=== PATIENT | female | born 1965 | race Caucasian/White ===

== ENCOUNTER 2021-11-15 16:15 | Emergency (ER) | payer OTHER ==
[~2021-11-15] VITALS: Ht 165.1 cm; Wt 67.6 kg
[2021-11-15 16:30] VITALS: BP 113/54
[2021-11-15] MEDS ORDERED: KETOROLAC 60 MG/2 ML VIAL. IM ONE (17:15)
[2021-11-15] MEDS ORDERED: CYCLOBENZAPRINE 10 MG TABLET. PO ONE (17:15)
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
--- NOTE | 2021-11-15 17:55 | RAD ---
C-spine 5 views. HISTORY: Pain AP, lateral, odontoid and both oblique views were taken of the cervical spine. I do not have a prior study for comparison. There are wire sutures posteriorly from C1 to C3 along the spinous processes. O dontoid is poorly seen. An old fracture would be possible. There is facet arthritis at multiple level s in the cervical spine with hypertrophic change. There is disc space narrowing most prominent at C4- 5. Thyroid is poorly seen on the open mouth view. Correlation with old studies or CT would be of bene fit for complete evaluation. The head is tilted to the left which could be positional. IMPRESSION: 1. Wire sutures with posterior fusion from the posterior aspect of C1 to the spinous process of C3. 2. Odontoid is indistinct possibly an old fracture. CT or correlation with old films would be necessa ry for complete evaluation. 3. Extensive degenerative changes in the rest of the cervical spine without other evidence of an acut e fracture. Electronically signed by: Aftab Cordova MD (11/15/2021 5:52 PM) [facility]
--- NOTE | 2021-11-15 17:57 | RAD ---
Right foot 3 views. HISTORY: Pain 3 views were taken of the right foot. There is osteoarthritis at the first metatarsal phalangeal join t with joint space narrowing and spurring. There is no acute fracture. There are multiple screws in t he calcaneus evidence suggesting an old healed calcaneal fracture. There is arthritis at the talonavi cular joint with joint space narrowing and spurring. An acute fracture is not identified. Is also art hritis between the calcaneus and cuboid. IMPRESSION: 1. Screws in the calcaneus probable old fracture. 2. Arthritis at the talonavicular joint and calcaneocuboid joint. 3. Arthritis first metatarsal phalangeal joint. 4. No new fracture noted. Electronically signed by: Aftab Cordova MD (11/15/2021 5:55 PM) [facility]
== END 2021-11-15 18:22 | disposition home or self-care (01) ==
LOC: ER 16:15
DX: M54.2 Cervicalgia (principal); M79.671 Pain in right foot; V43.52XA Car driver injured in collision with other type car in traffic accident, initial encounter; Y93.89 Activity, other specified; Y92.488 Other paved roadways as the place of occurrence of the external cause; Y99.8 Other external cause status
CPT/HCPCS: 72050; 73630; 96372; 99284; J1885

== ENCOUNTER → 2022-02-11 | Outpatient (CLI) | payer OTHER ==
--- NOTE | 2022-02-11 16:01 | RAD ---
EXAM: Bilateral digital diagnostic mammogram with tomosynthesis; bilateral breast sonogram. HISTORY: 56-year-old female presents with superior left breast fullness. TECHNIQUE: Full-field digital craniocaudal and mediolateral oblique 2D and 3D tomosynthesis images of both breasts are obtained for evaluation. Computer aided detection was applied. Sonographic imaging of both breasts targeted to sites of mammographic asymmetry and nodularity was also performed. COMPARISON: 12/29/2018. BREAST PARENCHYMAL DENSITY: Level B - Scattered fibroglandular densities. FINDINGS: There are 3 adjacent circumscribed nodules within the 1:00 position of the right breast at mid depth, the appearance of which favors oil cysts. There is asymmetry within the posterior lateral left breast which is stable compared to prior studies and changes configuration between projections, favoring an island of dense breast parenchyma. There is no suspicious calcification or architectural distortion. There are subpectoral breast implants. No implant rupture is seen. Sonographic imaging of the right breast demonstrates small circumscribed anechoic lesions at the 1:00 position 4 cm from the nipple measuring up to 4 mm, consistent with oil cysts demonstrated mammograp hically. There is no suspicious sonographic finding within the right breast. Sonographic imaging of the left breast demonstrates a 7 mm lymph node with slightly prominent cortex at the 3:00 position 10 cm from the nipple. This maintains a fatty hilum. No additional lesion is see n within the left breast. There are benign-appearing axillary lymph nodes. IMPRESSION: 1. No finding to correlate with reported superior left breast fullness. 2. 7 mm intramammary lymph node at the 3:00 position of the left breast 10 cm from the nipple. This d emonstrates a slightly prominent cortex and may be reactive in etiology. Follow-up with a left breast sonogram targeted to this location in 6 months is recommended to confirm benignity. 3. Subpectoral breast implants. 4. BI-RADS Category 3: Probably benign finding(s). Short term follow up with a left breast sonogram i n 6 months is recommended. If your mammogram demonstrates that you have dense breast tissue, which could hide abnormalities, and if you have other risk factors for breast cancer that have been identified, you might benefit from s upplemental screening tests that may be suggested by your ordering physician. Dense breast tissue, i n and of itself, is a relatively common condition. This information is not provided to cause undue c oncern, but rather to raise your awareness and to promote discussion with your physician regarding th e presence of other risk factors, in addition to dense breast tissue. A report of your mammography re sults will be sent to you and your physician. You should contact your physician if you have any ques tions or concerns regarding this report. Mammography is a sensitive method for finding small breast cancers, but it does not detect them all a nd is not a substitute for careful clinical examination. A negative mammogram does not negate a clin ically suspicious finding and should not result in delay in biopsying a clinically suspicious abnorma lity. PQRS compliance statement - Patient information was entered into a reminder system with a target due date for the next mammogram. "Our facility is accredited by the [employer] Mammography Program." Electronically signed by: Mallory Jimenez MD (02/11/2022 3:59 PM) [id number]
== END ==
LOC: MAMMO 14:16
PROVIDERS: ATTEND Internal Medicine
DX: N63.12 Unspecified lump in the right breast, upper inner quadrant (principal); N64.89 Other specified disorders of breast
CPT/HCPCS: 76642; 77066; G0279; 77062